=== PATIENT | female | born 1935 | race Caucasian/White ===

== ENCOUNTER 2016-03-25 | Outpatient (CLI) | payer MEDICARE | END 2016-03-25 09:43 | disposition critical access hospital (66) | CPT/HCPCS: A0425; A0427 ==

== ENCOUNTER 2016-03-25 10:01 | Emergency (ER) | payer MEDICARE ==
[2016-03-25] MEDS ORDERED: TETANUS/DIPHTHERIA/PERTUSSIS 0.5 ML SYRINGE IM ONE ×2 (11:37→12:29)
== END 2016-03-25 13:17 | disposition home or self-care (01) ==
DX: S00.03XA Contusion of scalp, initial encounter (principal); S20.229A Contusion of unspecified back wall of thorax, initial encounter; W18.39XA Other fall on same level, initial encounter; Y93.89 Activity, other specified; Y92.007 Garden or yard of unspecified non-institutional (private) residence as the place of occurrence of the external cause; Y99.8 Other external cause status; Z23 Encounter for immunization; I10 Essential (primary) hypertension

== ENCOUNTER 2016-06-25 08:18 | Day surgery (SDC) | payer MEDICARE ==
[2016-06-25] MEDS ORDERED: KETOROLAC 0.45% OPHTH DROPS OPTH ONE (09:16)
[2016-06-25] MEDS ORDERED: CYCLOPENTOLATE 1% OPHTH DROPS 2 ML OPTH ONE (09:16)
[2016-06-25] MEDS ORDERED: TROPICAMIDE 1% OPHTH 2 ML DROPS OPTH ONE (09:16)
[2016-06-25] MEDS ORDERED: LACTATED RINGERS 500 ML IV ONE (09:20)
[2016-06-25] MEDS ORDERED: MIDAZOLAM 2 MG/2 ML VIAL IVP ONE (10:15)
[2016-06-25] MEDS ORDERED: PROPARACAINE 0.5% OPHTH DROPS 15 ML OPTH ONE (10:24)
[2016-06-25] MEDS ORDERED: BRIMONIDINE 0.2% OPHTH DROPS 5 ML OPTH ONE (10:25)
[2016-06-25] MEDS ORDERED: EPINEPHrine 1 MG/ML AMP IO ONE (10:25)
[2016-06-25] MEDS ORDERED: levoFLOXacin 0.5% OPHTH DROPS 5 ML OPTH ONE (10:25)
[2016-06-25] MEDS ORDERED: CHONDR SULF/HYALURONATE SYRINGE IO ONE (10:25)
[2016-06-25] MEDS ORDERED: NEOMYCIN/POLYMYX/DEXAMETH OPHTH OINT OPTH ONE (10:25)
[2016-06-25] MEDS ORDERED: BSS/LIDOCAINE/EPINEPHRINE 1 ML SYRINGE IO ONE (10:26)
[2016-06-25] MEDS ORDERED: TIMOLOL 0.5% OPHTH DROPS OPTH ONE (10:26)
[2016-06-25] MEDS ORDERED: TETRACAINE 0.5% OPHTH DROPS 4 ML RIGHTEYE ONE (10:27)
== END 2016-06-25 08:19 | disposition home or self-care (01) ==
PROC: 08RJ3JZ Replacement of Right Lens with Synthetic Substitute, Percutaneous Approach (ICD-10-PCS; principal; 2016-06-25 09:45)
DX: H25.11 Age-related nuclear cataract, right eye (principal); I10 Essential (primary) hypertension; G20 Parkinson's disease; Z85.3 Personal history of malignant neoplasm of breast
CPT/HCPCS: 66984; V2632

== ENCOUNTER 2017-06-07 21:33 | Outpatient (CLI) | payer MEDICARE | END 2017-06-07 21:34 | disposition short-term general hospital (02) | LOC: EMS 21:33 | PROVIDERS: ATTEND Surgery | DX: S09.90XA Unspecified injury of head, initial encounter (principal); W22.8XXA Striking against or struck by other objects, initial encounter; Y93.E1 Activity, personal bathing and showering; Y92.002 Bathroom of unspecified non-institutional (private) residence as the place of occurrence of the external cause | CPT/HCPCS: A0425; A0429 ==

== ENCOUNTER 2018-07-02 10:09 | Outpatient (CLI) | payer MEDICARE ==
--- NOTE | 2018-07-02 13:10 | XRAY Report ---
Reason: MYALGIA, OTHER SITE Procedure Date: 07/02/2018 Accession Number: [id number] / [id number] Procedure: XRN - Chest 2 View X-Ray CPT Code: 38965 FULL RESULT: EXAM: CHEST RADIOGRAPHY EXAM DATE: 07/02/2018 10:47 AM. CLINICAL HISTORY: Myalgia, other site. COMPARISON: CHEST 2 VIEW PA/LAT 06/23/2013 10:44 AM. TECHNIQUE: 2 views. FINDINGS: Lungs/Pleura: No focal opacities evident. No pleural effusion. No pneumothorax. Normal volumes. Mediastinum: Mild cardiomegaly is stable compared to prior. Other: Surgical clips are seen in the right axillary region. The bones are qualitatively osteopenic; this limits evaluation for underlying fractures or masses. No definite displaced rib fracture is identified. IMPRESSION: Limited visualization of ribs partly due to suspected osteopenia and projections. RADIA
== END 2018-07-02 10:10 | disposition home or self-care (01) ==
LOC: DI.N 10:09
PROVIDERS: ATTEND Internal Medicine
DX: M79.18 Myalgia, other site (principal)
CPT/HCPCS: 71046

== ENCOUNTER 2020-09-18 08:35 | Outpatient (CLI) | payer MEDICARE ==
[2020-09-18] MEDS ORDERED: IOVERSOL 320 100 ML VIAL IVP ONE ×2 (08:52→09:35)
--- NOTE | 2020-09-18 17:52 | CT Report ---
PROCEDURE: CHEST W INDICATIONS: DYSPNEA, BREAST CA CONTRAST: IV CONTRAST: Optiray 320 ml: 100 PO CONTRAST: *NO PO CONTRAST TECHNIQUE: After the administration of intravenous contrast, images were acquired from the pulmonary apices to t he posterior costophrenic angles. Multiplanar MIP reformats were acquired. For radiation dose reduc tion, the following was used: automated exposure control, adjustment of mA and/or kV according to pa tient size. COMPARISON: None. FINDINGS: Image quality: Excellent. Lungs and pleura: No acute air space opacities. No pleural effusions or pneumothorax. Central and peripheral airways are patent and normal in caliber. Mild to moderate chronic interstitial pulmonary fibrosis. Multiple calcified granulomata. No suspicious lung lesions. Mediastinum: Heart size is normal. No pericardial effusion. No mediastinal or hilar adenopathy by size criteria aneurysmal dilatation of the ascending aorta, measuring 4.4 cm. Esophagus is normal in caliber. No hiatal hernia. Bones and chest wall: No suspicious bony lesions. No vertebral body compression fractures. No axil flaquito or supraclavicular adenopathy by size criteria. The thyroid is normal in size and there are no incidental findings.. Abdomen: Visualized upper abdominal solid organs appear normal. Upper abdominal bowel loops are nor mal in caliber. IMPRESSION: 1. No evidence of pulmonary metastatic disease. 2. Chronic interstitial pulmonary fibrosis. 3. Chronic granulomatous disease. CLINICAL RECOMMENDATION STATEMENTS: In patients <35 years with an ITN detected on CT, MRI, or extrathyroidal ultrasound, the Committee re commends further evaluation with dedicated thyroid ultrasound if the nodule is ?1 cm and has no suspi cious imaging features, and if the patient has normal life expectancy. In patients ?35 years with an ITN detected on CT, MRI, or extrathyroidal ultrasound, the Committee re commends further evaluation with dedicated thyroid ultrasound if the nodule is ?1.5 cm and has no michael picious imaging features, and if the patient has normal life expectancy. (ACR, 2014) Reviewed by: Amado Galaviz MD on 09/18/2020 5:51 PM PDT Approved by: Amado Galaviz MD on 09/18/2020 5:51 PM PDT Station ID: [id number]
== END 2020-09-18 08:36 | disposition home or self-care (01) ==
LOC: DI 08:35
PROVIDERS: ATTEND Internal Medicine
DX: R06.09 Other forms of dyspnea (principal); J84.10 Pulmonary fibrosis, unspecified; M85.80 Other specified disorders of bone density and structure, unspecified site; Z85.3 Personal history of malignant neoplasm of breast
CPT/HCPCS: 71260; Q9967

== ENCOUNTER 2020-09-25 08:39 | Outpatient (CLI) | payer MEDICARE ==
--- NOTE | 2020-09-25 16:19 | Nuclear Medicine Report ---
PROCEDURE: Bone Whole Body INDICATIONS: ANEMIA, BREAST CA RADIOPHARMACEUTICAL: 27.1 mCi Tc-99m MDP IV. TECHNIQUE: Delayed whole-body scintigrams were obtained approximately 3-4 hours after intravenous injection of r adiotracer. Anterior and posterior views were acquired from vertex to feet. Additional left and rig ht oblique views of the skull and cervical spine were obtained. COMPARISON: None available. FINDINGS: No lesions are identified in skull, sternum, scapulae, ribs, bony pelvis, and visualized s hafts of the long bones. There is moderate scoliosis in lumbar spine. Foci of increased activity are seen in cervical, thoracic and lumbar spine, indistinguishable from degenerative changes related to d egenerative disc and facet disease; early metastatic disease could be obscured by degenerative change s. There is increased periarticular activity in shoulders bilaterally, wrists bilaterally, hips bilat erally and knees bilaterally, compatible with degenerative/arthritic changes. There is low-level incr eased soft tissue uptake in the breasts bilaterally, nonspecific. IMPRESSION: 1. No definitive scintigraphic findings to suggest osseous metastasis. 2. Degenerative changes as described. Reviewed by: Sahil Kim MD on 09/25/2020 4:18 PM PDT Approved by: Sahil Kim MD on 09/25/2020 4:18 PM PDT Station ID: [id number]
== END 2020-09-25 08:40 | disposition home or self-care (01) ==
LOC: DI 08:39
PROVIDERS: ATTEND Internal Medicine
DX: M89.49 Other hypertrophic osteoarthropathy, multiple sites (principal)
CPT/HCPCS: 78306

== ENCOUNTER 2020-12-25 12:18 | Outpatient (CLI) | payer MEDICARE ==
--- NOTE | 2020-12-25 13:27 | XRAY Report ---
PROCEDURE: Hip w/Pelvis 2-3V RT INDICATIONS: LOW BACK PAIN RIGHT HIP PAIN TECHNIQUE: AP pelvis with lateral view(s) of the right hip(s). COMPARISON: None. FINDINGS: Bones: No fractures or dislocations. Pelvic ring appears intact. Mild joint space narrowing of the bilateral hips with sclerosis of the opposing articular surfaces. No suspicious bony lesions. Soft tissues: The visualized bowel gas pattern is normal. No suspicious soft tissue calcifications. Redemonstrated bilateral round calcific densities, which may reflect vascular calcification. IMPRESSION: No acute osseous abnormality. Reviewed by: Robin Muñoz MD on 12/25/2020 1:26 PM PDT Approved by: Robin Muñoz MD on 12/25/2020 1:26 PM PDT Station ID: [id number]
== END 2020-12-25 12:19 | disposition home or self-care (01) ==
LOC: DI 12:18
PROVIDERS: ATTEND Internal Medicine
DX: M54.50 Low back pain, unspecified (principal); M25.551 Pain in right hip

== ENCOUNTER 2022-03-16 07:26 | Outpatient (CLI) | payer MEDICARE | END 2022-03-16 07:27 | disposition short-term general hospital (02) | LOC: EMS 07:26 | DX: R07.81 Pleurodynia (principal); W18.39XA Other fall on same level, initial encounter; Y93.01 Activity, walking, marching and hiking; Y92.003 Bedroom of unspecified non-institutional (private) residence as the place of occurrence of the external cause | CPT/HCPCS: A0425; A0429 ==

== ENCOUNTER 2022-07-04 10:42 | Outpatient (CLI) | payer MEDICARE ==
--- NOTE | 2022-07-07 11:18 | Ultrasound Report ---
LIMITED ULTRASOUND OF RIGHT BREAST: 07/04/2022 CLINICAL: Focal right breast pain. Comparison is made to exams dated: 07/04/2022 mammogram - [facility], 12/20/2021 ma mmogram, 10/10/2020 mammogram, 10/05/2019 mammogram - [facility], 07/15/2018 mammogram, and 03/05/2018 mammogram - outside location. Color flow and real-time ultrasound of the right breast 2 o'clock region were performed on the areas of interest. Manning scale images of the real-time examination were reviewed. IMPRESSION: NEGATIVE There is no sonographic evidence of malignancy. There is no mammographic or sonographic abnormality seen in the right breast to correspond with the i ntermittently palpable abnormality, however, clinical followup is recommended. A 1 year screening mammogram is recommended. Future imaging is recommended as follows: 12/21/2022 sc reening mammogram. This exam was interpreted at Station ID: [id number]. Electronically Signed By: Maeve Stafford M.D. lk/:07/04/2022 11:46:06 letter sent: No_Letter Ultrasound BI-RADS: 1 Negative BI-RADS CATEGORY: (1) - 1 Mammogram [id number] return to screening LATERALITY: (B)
--- NOTE | 2022-07-07 11:18 | Mammography Report ---
UNILATERAL RIGHT DIGITAL DIAGNOSTIC MAMMOGRAM 3D/2D WITH SPOT COMPRESSION: 07/04/2022 CLINICAL: Palpable right breast lump. Comparison is made to exams dated: 12/20/2021 mammogram, 10/10/2020 mammogram, 10/05/2019 mammogram - [facility], and 07/15/2018 mammogram - outside location. The right breast is heterogeneously dense, which may obscure small masses (category c / 51-75% glandu lar tissue). No significant masses, calcifications, or other findings are seen in the breast. IMPRESSION: INCOMPLETE: NEEDS ADDITIONAL IMAGING EVALUATION There is no mammographic abnormality seen in the right breast to correspond with the palpable abnorma lity, however, targeted ultrasound of the right breast is recommended and will be performed immediat chintan following this exam. Future imaging is recommended as follows: 12/21/2022 screening mammogram. This exam was interpreted at Station ID: [id number]. NOTE: For mammograms, a report in lay terms will be sent to the patient. Approximately 15% of breast malignancies will not be visualized mammographically. In the management of a palpable breast mass, a negative mammogram must not discourage biopsy of a clinically suspicious lesion. Electronically Signed By: Maeve Stafford M.D. lk/:07/04/2022 11:27:48 ACR BI-RADS Category 0: Incomplete 3340F PARENCHYMAL PATTERN: (D) - The breast(s) demonstrate(s) heterogeneously dense fibroglandular parenchy ma. BI-RADS CATEGORY: (0) - 0 Ultrasound [id number] Immediate follow-up LATERALITY: (B)
== END 2022-07-04 10:43 | disposition home or self-care (01) ==
LOC: DI 10:42
PROVIDERS: ATTEND Internal Medicine
DX: N64.4 Mastodynia (principal)

== ENCOUNTER 2023-07-09 10:39 | Outpatient (CLI) | payer MEDICARE ==
--- NOTE | 2023-07-14 08:45 | Mammography Report ---
BILATERAL DIGITAL SCREENING MAMMOGRAM 3D/2D: 07/09/2023 CLINICAL: Routine screening. Personal history of right breast cancer. Comparison is made to exams dated: 07/04/2022 mammogram - [facility], 12/20/2021 ma mmogram, 10/10/2020 mammogram, 10/05/2019 mammogram - , 07/15/2018 mammogram, and 03/05/2018 mammogram - outside location. Both breasts are heterogeneously dense, which may obscure small masses (category c / 51-75% glandular tissue). There are benign vascular calcifications in both breasts. No significant masses, calcifications, or other findings are seen in either breast. There has been no significant interval change. IMPRESSION: BENIGN There is no mammographic evidence of malignancy. A 1 year screening mammogram is recommended. This exam was interpreted at Station ID: [id number]. NOTE: For mammograms, a report in lay terms will be sent to the patient. Approximately 15% of breast malignancies will not be visualized mammographically. In the management of a palpable breast mass, a negative mammogram must not discourage biopsy of a clinically suspicious lesion. Electronically Signed By: Yahaira pagan/caity:07/13/2023 15:11:56 letter sent: No_Letter ACR BI-RADS Category 2: Benign Finding(s) 3342F PARENCHYMAL PATTERN: (D) - The breast(s) demonstrate(s) heterogeneously dense fibroglandular parenchy ma. BI-RADS CATEGORY: (2) - 2 RECOMMENDATION: (ANNUAL) - Recommend routine annual screening mammography. [id number] 1 year screening LATERALITY: (B)
== END 2023-07-09 10:40 | disposition home or self-care (01) ==
LOC: DI 10:39
PROVIDERS: ATTEND Internal Medicine
DX: Z12.31 Encounter for screening mammogram for malignant neoplasm of breast (principal); R92.333 Mammographic heterogeneous density, bilateral breasts; R92.1 Mammographic calcification found on diagnostic imaging of breast